=== PATIENT | female | born 1970 | race Caucasian/White ===

== ENCOUNTER 2016-07-13 08:39 | Emergency (ER) | payer OTHER ==
[2016-07-13] MEDS ORDERED: SODIUM CHLORIDE 0.9% 1000ML 1,000 ML IVS ONE (09:03)
[2016-07-13] MEDS ORDERED: ONDANSETRON INJ 4 MG/2 ML VIAL IV ONE (09:03)
--- NOTE | 2016-07-13 09:06 | ED.PDOC ---
History of Present Illness - General Chief Complaint: GI Problem Stated Complaint: vomiting blood Time Seen by Provider: 07/13/16 08:51 Information Source: patient, RN notes reviewed, Vital Signs reviewed Exam Limitations: no limitations - History of Present Illness Initial Comments: Patient reports this morning she had a lot of sinus drainage. Along with this she has had nausea and one episode of vomiting. She reports there was more blood than bile in the vomit and she got concerned. Since vomiting she is having some epigastric and LUQ pain. Abdominal Pain Onset Location: LUQ, epigastric Pain Radiation: no radiation Quality: mild, dull, sharpness Timing/Duration: 1 hour Improving Factors: nothing Worsening Factors: nothing Associated Symptoms: nausea/vomiting Review of Systems - Review of Systems Constitutional: States: no symptoms reported. Denies: chills, diaphoresis, fever, malaise, weakness EENTM: States: other - Sinus pain/congestion/drainage Respiratory: States: no symptoms reported. Denies: cough, orthopnea, short of breath, stridor Cardiology: States: no symptoms reported. Denies: chest pain, palpitations, syncope Gastrointestinal/Abdominal: States: see HPI, abdominal pain, nausea, vomiting. Denies: constipation, diarrhea Genitourinary: States: no symptoms reported Musculoskeletal: States: no symptoms reported Skin: States: no symptoms reported Neurological: States: no symptoms reported. Denies: headache Endocrine: States: no symptoms reported Hematologic/Lymphatic: States: no symptoms reported. Denies: easy bleeding, easy bruising Past Medical History (General) - Patient Medical History Hx Hypertension: Yes Hx Diabetes: Yes Surgical History: other - Vaccination History Hx Tetanus, Diphtheria Vaccination: Yes Hx Influenza Vaccination: No Hx Pneumococcal Vaccination: No - Social History Hx Tobacco Use: No Hx Alcohol Use: No Hx Substance Use: No Hx Substance Use Treatment: No Hx Depression: No - Activities of Daily Living Hospice Agency (if applicable):: None - Female History Patient is a Female of Child Bearing Age (10 -59 yrs old): No Patient : No Family Medical History - Family History Mother Family History: Unknown Physical Exam - Physical Exam General Appearance: Alert, Comfortable, No apparent distress, Well Developed, Well Groomed, Well Hydrated, Well Nourished Eyes, Ears, Nose, Throat Exam: PERRL/EOMI, pharynx normal Neck: non-tender, full range of motion, supple, normal inspection Respiratory: chest non-tender, lungs clear, normal breath sounds, no respiratory distress, no accessory muscle use Cardiovascular/Chest: regular rate, rhythm, no edema, no gallop, no JVD, no murmur Gastrointestinal/Abdominal: soft, tenderness - generalized but worst in epigastric area Extremity: normal range of motion, non-tender, normal inspection, no pedal edema Neurologic: no motor/sensory deficits, alert, normal mood/affect, oriented x 3 Skin Exam: normal color, warm/dry Lymphatic: no adenopathy Special Observations: Smiling Progress - Progress Progress: 07/13/16 10:24 Patient has been comfortable her whole visit. No further episodes of vomiting. Labs are normal. Will d/c home with treatment for sinus infection. ER warnings given for any further bloody vomiting or diarrhea. Patient agrees with plan. Departure - Departure Clinical Impression: Sinusitis, Vomiting Time of Disposition: 10:26 Disposition: Discharge to Home or Self Care Condition: Good Departure Forms: ED Discharge - Pt. Copy, Patient Portal Self Enrollment Instructions: DI for Sinusitis, Nausea and Vomiting-Adult Diet: resume usual diet Referrals: Jass Rowland III, MD [Primary Care Provider] - 1-2 Days Prescriptions: Ondansetron [Zofran Odt] 4 mg PO Q4HR PRN #20 tab PRN Reason: Nausea/Vomiting Cefuroxime Axetil [Ceftin] 500 mg PO BID #20 tab Home Medications: Ambulatory Orders Acetaminophen W/ Codeine [Acetaminophen/Codeine 300-30 mg] 1 tab PO Q6-8H PRN # 15 tab 05/30/14 Lexapro 05/30/14 Lisinopril 05/30/14 Synthroid 05/30/14 Cefuroxime Axetil [Ceftin] 500 mg PO BID #20 tab 07/13/16 Ondansetron [Zofran Odt] 4 mg PO Q4HR PRN #20 tab 07/13/16
[2016-07-13 09:08] VITALS: O2SAT 96
[2016-07-13] MEDS ORDERED: SODIUM CHLORIDE 0.9% 1000ML 1,000 ML ONE (09:16)
[2016-07-13] MEDS ORDERED: methylPREDNISolone SODIUM SUC 125 MG/2 ML VIAL IV ONE (10:23)
[2016-07-13 10:49] VITALS: BP 128/79; TEMP 97.7
== END 2016-07-13 10:42 | disposition home or self-care (01) ==
LOC: ER 08:39
DX: J32.9 Chronic sinusitis, unspecified (principal); I10 Essential (primary) hypertension; E11.9 Type 2 diabetes mellitus without complications
CPT/HCPCS: 36415; 80053; 82150; 83690; 85025; J2405; J2930; J7030

== ENCOUNTER 2018-07-22 11:41 | Inpatient (IN) | payer OTHER ==
--- NOTE | 2018-07-22 11:42 | HP ---
CHIEF COMPLAINT: Direct admit for worsening urinary tract infection. HISTORY OF PRESENT ILLNESS: Ms. Garcia is a patient of Dr. Rowland at [facility] who has been having some problems with a urinary tract infection. She states she was having some dysuria and some issues about a week ago, started drinking more water and cranberry juice to alleviate symptoms as this has worked in the past. She began to develop fever and chills over the last several days, the chills being worse than anything. She was seen in the clinic on Wednesday for the fever and was started on Macrobid and was found to be flu positive at that time. Since Wednesday, the fever and chills have still been going on, she does have spotty aches, but worsening new onset lower back pain around her lower rib area for the last day or so. She currently still endorses dysuria and a slight headache. She said she has not been urinating very much, but she thinks it is because she has not been drinking much water, just sleeping most of the day. REVIEW OF SYSTEMS: GENERAL: Fever and chills present, in mild acute distress just of lack of sleep and exhaustion. HEENT: Denies nasal congestion, headache present. CHEST: No shortness of breath, no cough, no pleuritic chest pain. CARDIOVASCULAR: No chest pains, no palpitations, no peripheral edema. ABDOMEN: Slight soreness throughout the abdomen with torso movements and getting up and down out of the bed, slightly worse in the lower suprapubic quadrant. MUSCULOSKELETAL: No extremity issues. She feels like her lower back is in pain. NEUROLOGIC: No confusion, headache present. PAST MEDICAL HISTORY: 1. Chronic hypothyroidism. 2. Generalized anxiety. 3. Essential hypertension. 4. Gastroesophageal reflux disease. 5. Insulin dependent diabetes mellitus, type 1. 6. History of Dustin's disease. PAST SURGICAL HISTORY: 1. section. 2. Hysterectomy of the uterus only. MEDICATIONS: 1. Furosemide 40 mg q. daily p.o. 2. Lisinopril 10 mg tablet p.o. daily. 3. Alprazolam 0.5 mg tablet half to one tablet by mouth daily p.r.n. anxiety. 4. Synthroid 0.1 mg tablet daily. 5. Potassium chloride 10 mEq tablets 2 tablets per day. 6. Macrobid 100 mg capsule every 12 hours for 7 days. 7. Insulin pump for type 1 diabetes. ALLERGIES: NO KNOWN DRUG ALLERGIES. SOCIAL HISTORY: Occupation: Teacher. Marital status: . Children: Two. Tobacco: She has never smoked. Alcohol: Daily glass of wine. Illicit drug use: None. PHYSICAL EXAMINATION: VITAL SIGNS: Temperature 99.5. Heart rate 112. Blood pressure 147/85. Respiratory rate 20. Oxygen saturation 100% on room air. GENERAL: In mild distress, seemingly exhausted and having diffuse body aches. CHEST: Lungs clear to auscultation, no wheezing, no rales. CARDIOVASCULAR: Normal sinus rhythm, tachycardia, no murmurs, no peripheral edema. ABDOMEN: Tender to palpation throughout abdomen, negative rebound, more localized soreness to the suprapubic region. Mild to moderate CVA tenderness, worse on the left than the right. NEUROLOGIC: Alert and oriented to person, place and time. Cranial nerves intact. EXTREMITIES: No swelling, pulses normal. LABORATORY: WBC 7.4, HGB 14.2, PLT 192, SODIUM 131, K 3.3, CHLORIDE 97, CO2 23, AST 320, ALT 226, ALK PHOS 93, PENDING AMYLASE/LIPASE IMAGING: Pending renal ultrasound read, but verbal prelim read showed no acute findings of liver/pancrease/gallbladder, slight possible small fluid in one renal pelvis. ASSESSMENT: 1. History of urinary tract infection, likely current complicated urinary tract infection, concerning for pyelonephritis. Failed outpatient treatment on Macrobid. 2. Tachycardia, likely secondary to #1. 3. Tachypnea, likely secondary to #1. 4. Sepsis without shock, secondary to #1. 5. Chronic insulin dependent diabetes mellitus, type 1, on insulin pump. 6. Chronic gastroesophageal reflux disease. 7. Chronic hypertension. 8. Chronic anxiety. 9. Chronic hypothyroidism. PLAN: Currently, Ms. Garcia has failed outpatient treatment for urinary tract infection on Macrobid b.i.d., her fevers and chills have worsened and it is obvious her infection is still going on. I do have results from clinic lab work which on urinalysis shows 2+ bacteria with trace leukocyte esterase, but negative nitrite. Also seen is 5 to 10 white cell count, which could represent likely urinary tract infection. White blood cell count prior to admission was 9.3, given this and her vitals here, we could go ahead and label her as septic and begin sepsis protocol with fluid resuscitation as per protocol. We will start cefepime IV for complicated urinary tract infection with systemic symptoms and Tylenol p.r.n. for pain control. We will obtain a new urinalysis and urine culture as I do not have results at this time for urine culture. Blood cultures will be obtained as well. She is still mobile, no need for DVT prophylaxis at this time. We will order a renal ultrasound to evaluate for any fluid collection or any type of abscess that may be present. Liver enzyme elevation, will look at hepatitis panel. Given AST>ALT, possible EtOH liver changes as she drinks alcohol daily. I discussed this with the patient and at bedside. #[id number] [facility]
[2018-07-22] MEDS ORDERED: SODIUM CHLORIDE 0.9% (FLUSH) 10 ML SYG IV PRN (13:26)
[2018-07-22] MEDS ORDERED: IV SET AND CAP CHANGE INJ INJ SCH (13:30)
[2018-07-22] MEDS ORDERED: ALPRAZolam 0.5 MG TAB PO PRN (13:33)
[2018-07-22] MEDS ORDERED: SODIUM CHLORIDE 0.9% 1000ML 1,000 ML IVS ONE ×2 (13:47→13:49)
[2018-07-22] MEDS: ACETAMINOPHEN 325 MG TAB PO PRN (14:02)
[2018-07-22] MEDS: LISINOPRIL 10 MG TAB PO SCH (14:34)
[2018-07-22] MEDS ORDERED: SODIUM CHL 0.9% 50ML MIN-BAG+ 50 ML IVPB ONE ×2 (14:43→19:15)
[2018-07-22] MEDS ORDERED: CEFEPIME 2 GM VIAL ONE ×2 (14:44→19:15)
[2018-07-22] MEDS: CEFEPIME 2 GM in SODIUM CHL 0.9% 50ML MIN-BAG+ 50 ML IVPB SCH (14:53)
--- NOTE | 2018-07-22 15:23 | US ---
EXAM DESCRIPTION: Abdomen,Complete: Ultrasound. CLINICAL HISTORY: Potential Pyelonephritis, Lever Enzyme Elevation COMPARISON: CT scan of abdomen and pelvis May 2014. TECHNIQUE: Transabdominal scannin-dimensional and Doppler modes.. Patient voided prior to procedure. FINDINGS: Gallbladder: Normal size and shape with no intraluminal stones or sludge. No wall thickening. 1.6 mm. No fluid surrounding the gallbladder. Nontender with transducer pressure. Common bile duct: 4.8 mm normal caliber. Liver: 13.2 cm long axis with normal echogenicity. Smooth capsule where seen with no ascites. Normal direction of flow in the portal and hepatic veins.. No intrahepatic duct dilation. Pancreas: Normal echogenicity in the included segments with pancreatic duct not seen.. Abdominal aorta: Normal caliber from the proximal segment to the distal bifurcation. IVC: visualized; normal caliber. Spleen normal echogenicity; long axis measurement is 9.2 cm. Right kidney: 9.7 cm long axis. Normal echogenicity and thickness of the cortex. No hydronephrosis. No perinephric fluid. No focal lesions. Normal vascularity. Left kidney: 9.9 cm long axis. Minimal cortical thinning with normal echogenicity. No hydronephrosis, but renal pelvis is slightly prominent. Normal vascularity. No perinephric fluid. No focal lesions. Proximal ureter not seen. Urinary bladder volume 9 mL. IMPRESSION: 1. Minimal prominence of the left renal pelvis which may be normal variant. Proximal left ureter not seen. Urinary bladder almost empty. Right kidney unremarkable. No focal lesions or perinephric fluid bilaterally. 2. Remainder of examination is unremarkable. Electronically signed by: Rodney Lopez MD 07/22/2018 3:20 PM [facility]
[2018-07-22] MEDS: SODIUM CHLORIDE 0.9% 1000ML 1,000 ML IVS PRN (17:05)
[2018-07-22] MEDS ORDERED: LEVOTHYROXINE SODIUM 0.1 MG TAB ONE (19:15)
[2018-07-22] MEDS: IBUPROFEN 400 MG TAB PO PRN (19:37)
[2018-07-23] MEDS: CEFEPIME 2 GM in SODIUM CHL 0.9% 50ML MIN-BAG+ 50 ML IVPB SCH ×2 (01:30→14:15)
[2018-07-23] MEDS: SODIUM CHLORIDE 0.9% 1000ML 1,000 ML IVS PRN (01:32)
[2018-07-23] MEDS: LEVOTHYROXINE SODIUM 0.1 MG TAB PO SCH (06:11)
[2018-07-23] MEDS: ACETAMINOPHEN 325 MG TAB PO PRN ×2 (06:11→14:10)
[2018-07-23] MEDS ORDERED: POTASSIUM CHLORIDE 20 MEQ TAB PO ONE (06:36)
[2018-07-23] MEDS: LISINOPRIL 10 MG TAB PO SCH (08:36)
[2018-07-23] MEDS: SODIUM CHLORIDE 0.9% (FLUSH) 10 ML SYG IV SCH ×2 (09:00→20:26)
--- NOTE | 2018-07-23 10:35 | PN ---
DATE: 07/23/18 SUBJECTIVE: Mc. Garcia endorses she is feeling a lot better today, has not had any fever or chills since yesterday. She says her left lower back pain is still present, but greatly decreased. She has been able to get up and go to the restroom, does not feel weak or dizzy when doing so. Regarding our discussion yesterday about her liver enzymes, again today she endorses no new or changing abdominal pain or tenderness when moving. REVIEW OF SYSTEMS: GENERAL: Denies any distress, no fever or chills. CHEST: No cough or shortness of breath. CARDIAC: Denies chest pain, denies palpitations. ABDOMEN: Slight but decreased soreness throughout the abdomen when rotating or moving, slightly more focal soreness in the left suprapubic region. MUSCULOSKELETAL: Denies any muscle weakness, denies a decrease in lower back pain. NEURO: No confusion, no headaches. OBJECTIVE: VITAL SIGNS: Temperature 98.7, pulse 77, blood pressure 106/71, respiratory rate 18. Oxygen saturation 100% on room air. GENERAL: In no acute distress, conversation normal. CHEST: Lungs are clear to auscultation, no wheezes. CARDIAC: Normal rate and rhythm, no murmurs, no peripheral edema. ABDOMEN: Mild diffuse tenderness throughout all quadrants, slight increase in tenderness in the left lower quadrant. When attempting Vargas's sign, she endorses pain in her epigastrium rather than the right upper quadrant. She endorsed this was her normal feeling of reflux with her. MUSCULOSKELETAL: Pulses normal, moving all extremities normal, slight improvement in lower left CVA tenderness. NEURO: Alert and oriented to person, place and time, no confusion, no focal deficits. LABORATORY: WBC 2.9, hemoglobin 12.4, platelet count 160,000, normal RDW. Sodium normalized at 137, potassium still low at 3.0, chloride 107, C02 of 22, BUN/creatinine 9/0.77. Total bilirubin still normal at 0.4, increase in AST/ALT to 851, 573, alkaline phosphatase increased from 93 to 181, troponin negative x2 from yesterday. Amylase and lipase within normal limits at 29 and 24 respectively. Urinalysis from admission shows trace blood and protein, but negative for nitrite and leukocyte esterase. Acute hepatitis panel is pending. MICROBIOLOGY: Urine culture pending along with susceptibilities, influenza A and B negative, blood cultures negative past 24 hours, preliminary as of now. IMAGING: Complete abdominal ultrasound from 07/22/18 shows: 1. Normal gallbladder with no thickening, no sign of infection, as well as a normal common bile duct. 2. Liver has normal echogenicity, smooth capsule with no ascites, no ductal issues. 3. Pancreas - He has normal echogenicity, no sign of infection. 4. Right and left kidney are normal echogenicity and normal thickness of the cortex. 5. Renal pelvis and left kidney are slightly prominent but no focal lesions are seen in either. ASSESSMENT: 1. History of urinary tract infection, likely current complicated urinary tract infection, concerning for pyelonephritis. Failed outpatient treatment on Macrobid. 2. Tachycardia, likely secondary to #1, resolved. 3. Tachypnea, likely secondary to #1, resolved. 4. Sepsis without shock, secondary to #1, resolved. 5. Chronic insulin dependent diabetes mellitus, type 1, on insulin pump. 6. Chronic gastroesophageal reflux disease. 7. Chronic hypertension. 8. Chronic anxiety. 9. Chronic hypothyroidism. PLAN: Currently, Ms. Garcia is improving from a sepsis/infection standpoint. Vital signs are normalizing, as well as her pain. She is doing well with p.o. oral intake, we will discontinue her fluids and monitor her blood pressure and vital signs. Regarding her elevation in liver enzymes, I have discussed with the pharmacy on-call about potential contributors of her medication list. Very unlikely to be Cefepime, as it is only has about a 3% chance of causing any liver enzyme elevation. Also, given a normal ultrasound, no real sign of acute infection, although, we are still waiting for an acute hepatitis panel. Stating the infection alone can increase the liver enzymes, if so, I would expect to see a decrease in these over the next day or so. Still waiting for urine cultures at this time, we do not have access to obtain any urine culture from an outside location. She did have a urine culture completed. We will continue on the current medications listed above and monitor improvement. Once we have cultures and susceptibilities from her urine, we can begin to narrow our spectrum into antibiotics to a more appropriate form. #[id number] [facility]
[2018-07-23] MEDS ORDERED: CEFEPIME 2 GM VIAL ONE ×2 (13:58→19:06)
[2018-07-23] MEDS ORDERED: SODIUM CHL 0.9% 50ML MIN-BAG+ 50 ML IVPB ONE ×2 (13:58→19:05)
[2018-07-23] MEDS: IBUPROFEN 400 MG TAB PO PRN (19:27)
[2018-07-24] MEDS: CEFEPIME 2 GM in SODIUM CHL 0.9% 50ML MIN-BAG+ 50 ML IVPB SCH (01:18)
[2018-07-24] MEDS: ACETAMINOPHEN 325 MG TAB PO PRN (01:54)
[2018-07-24] MEDS: LEVOTHYROXINE SODIUM 0.1 MG TAB PO SCH (06:05)
[2018-07-24] MEDS: SODIUM CHLORIDE 0.9% (FLUSH) 10 ML SYG IV SCH (08:59)
[2018-07-24] MEDS: LISINOPRIL 10 MG TAB PO SCH (08:59)
[2018-07-24 12:21] VITALS: BP 144/92; TEMP 97.8; O2SAT 99
--- NOTE | 2018-07-24 12:22 | PN ---
DATE: 07/24/18 SUBJECTIVE: The patient feeling well this morning, lower left back pain is very minimal, almost nonexistent. She states she feels well overall, and is patiently awaiting the urine cultures to decide what to do next. No changes per nursing overnight. REVIEW OF SYSTEMS:: GENERAL: No acute distress, no confusion. CHEST: No shortness of breath, no cough. CARDIO: No chest pain, denies palpitations. ABDOMEN: Soreness has apparently decreased, no more pains in the suprapubic region. NEUROLOGIC: No headache, no sensory changes. EXTREMITIES: No extremity pain, no extremity swelling. OBJECTIVE: VITAL SIGNS: Temperature 97.1, pulse 64, blood pressure 104/67, respiratory rate 16, O2 saturation 96% on room air. PHYSICAL EXAM: GENERAL: Sitting up in bed comfortably, no acute distress. CHEST: Lungs are clear to auscultation. No wheezes or crackles. CARDIO: Normal rate and rhythm, no murmurs, no pitting peripheral edema, normal pulses. ABDOMEN: Soft, non-tender, no more focal tenderness to the suprapubic region. MUSCULOSKELETAL: No extremity deformities, very minimal low back pain to palpation. NEUROLOGIC: No confusion, alert and oriented to person, place, and time, no focal deficits. LABORATORY: WBC 3.2, hemoglobin 12.4, hematocrit 38.0, platelet count 194. Sodium 136, potassium 3.4, chloride 107, CO2 is 22, BUN/creatinine 8/0.56. AST improved to 344, ALT improved to 424, alkaline phosphatase slightly elevated again at 247. Total bilirubin still normal at 0.4. Acute hepatitis panel is still pending. MICROBIOLOGY: Urine culture pending, blood cultures negative after 24 hours. ASSESSMENT: 1. History of urinary tract infection, likely current complicated urinary tract infection, concerning for pyelonephritis. Failed outpatient treatment on Macrobid, improved and resolving. 2. Tachycardia, likely secondary to #1, resolved. 3. Tachypnea, likely secondary to #1, resolved. 4. Sepsis without shock, secondary to #1, resolved. 5. Chronic insulin dependent diabetes mellitus, type 1, on insulin pump. 6. Chronic gastroesophageal reflux disease. 7. Chronic hypertension. 8. Chronic anxiety. 9. Chronic hypothyroidism. PLAN: The patient is doing very well. We are going to continue the IV antibiotics for now until we have blood cultures and susceptibilities. Her vital signs have normalized, and I urged her to get up and move around in the room or even walk down the halls when she can. Her liver enzymes are improving, as of now it seems that this was a response to her septic condition, and I expect them to normalize over the next couple of days. Her blood pressure is in the lower ranges of normal, I urged her to get to move around often throughout the day, this should normalize this into a more normal range. #[id number] [facility]
--- NOTE | 2018-07-24 14:18 | DS ---
ADMISSION DIAGNOSIS: 1. History of urinary tract infection, likely current complicated urinary tract infection, concerning for pyelonephritis. Failed outpatient treatment on Macrobid. 2. Tachycardia, likely secondary to #1. 3. Tachypnea, likely secondary to #1. 4. Sepsis without shock, secondary to #1. 5. Chronic insulin dependent diabetes mellitus, type 1, on insulin pump. 6. Chronic gastroesophageal reflux disease. 7. Chronic hypertension. 8. Chronic anxiety. 9. Chronic hypothyroidism. REASON FOR HOSPITALIZATION: Ms. Garcia is a patient of Dr. Rowland at [facility] who has been having some problems with a urinary tract infection. She states she was having some dysuria and some issues about a week ago, started drinking more water and cranberry juice to alleviate symptoms as this has worked in the past. She began to develop fever and chills over the last several days, the chills being worse than anything. She was seen in the clinic on Wednesday for the fever and was started on Macrobid and was found to be flu positive at that time. Since Wednesday, the fever and chills have still been going on, she does have spotty aches, but worsening new onset lower back pain around her lower rib area for the last day or so. She currently still endorses dysuria and a slight headache. She said she has not been urinating very much, but she thinks it is because she has not been drinking much water, just sleeping most of the day. HOSPITAL COURSE: Ms. Garcia was initially admitted with a suspected systemic response to a urinary tract infection she was being treated for outpatient. She met sepsis criteria upon admission, thus we initiated sepsis protocol with fluid resuscitation and antibiotics to cover for a systemic urinary tract infection. She had also tested positive for the flu the day she received treatment for her UTI which was 3 days prior to admission. Over the course of her stay she responded well to fluids, and resolved her sepsis picture by the end of hospital day 2. We have been treating her with Cefepime IV, while we were waiting for urine culture sepsis susceptibilities. VITAL SIGNS: Temperature 97.1, pulse 64, blood pressure 104/67, respiratory rate 16, O2 saturation 96% on room air. LABORATORY AND IMAGING: CBC remained normal throughout the entire stay. Chemistry revealed a slightly low potassium level, slightly increasing over the hospital stay. Of note, she had an elevated AST and ALT that seemed to rise due to her diagnosis of sepsis, but this has been normalizing over the last 2 days. Urinalysis on admission shows negative for nitrate or leukocyte esterase, in light of being treated for 2 days on Macrobid. Acute hepatitis panel is still pending. Urine culture: Less than 10,000 CFUs of normal urogenital karen. Abdominal ultrasound 07/22/18 shows a normal gallbladder and normal liver. Normal echogenicity and no other findings in the pancreas. A slightly prominent left renal pelvis which could be a normal variant or a result from UTI. DISCHARGE DIAGNOSIS: 1. History of urinary tract infection, likely current complicated urinary tract infection, concerning for pyelonephritis. Failed outpatient treatment on Macrobid, improved and resolving. 2. Influenza, resolved. 2. Tachycardia, likely secondary to #1 and #2, resolved. 3. Tachypnea, likely secondary to #1 and #2, resolved. 4. Sepsis without shock, secondary to #1 and #2, resolved. 5. Chronic insulin dependent diabetes mellitus, type 1, on insulin pump. 6. Chronic gastroesophageal reflux disease. 7. Chronic hypertension. 8. Chronic anxiety. 9. Chronic hypothyroidism. PLAN: After receiving final results for the urine culture, it seems that she was adequately treated for UTI with Macrobid prior to admission. I suspect her sepsis was then likely due to the concomitant Influenza infection. Whichever of these 2 were the main culprit, she received adequate treatment for both along the sepsis protocols. She will have received 2 days of Macrobid prior to admission, 3 days of Cefepime during the hospital stay, and will receive 3 more days of Macrobid once discharged. We discussed the need to remain hydrated and followup with primary care physician soon for a complete resolution. During her entire stay her anion gap remained normal and blood glucose never kamilah above 240, likely not a DKA or an HHS picture. #[id number] [facility]
== END 2018-07-24 11:10 | disposition home or self-care (01) | DRG 872 ==
LOC: MS 11:41
PROVIDERS: ADMIT Family Medicine; ATTEND Family Medicine
DX: A41.9 Sepsis, unspecified organism (principal); N12 Tubulo-interstitial nephritis, not specified as acute or chronic; E03.9 Hypothyroidism, unspecified; F41.1 Generalized anxiety disorder; I10 Essential (primary) hypertension; K21.9 Gastro-esophageal reflux disease without esophagitis; E10.9 Type 1 diabetes mellitus without complications; Z96.41 Presence of insulin pump (external) (internal); Z87.440 Personal history of urinary (tract) infections

== ENCOUNTER → 2020-04-01 | Outpatient (CLI) | payer BC | LOC: GMAL 10:56 | PROVIDERS: ATTEND Family Medicine | DX: E03.9 Hypothyroidism, unspecified (principal); E10.9 Type 1 diabetes mellitus without complications ==

== ENCOUNTER → 2020-06-05 | Outpatient (CLI) | payer BC | LOC: GMAL 10:33 | PROVIDERS: ATTEND Family Medicine | DX: E03.9 Hypothyroidism, unspecified (principal) ==

== ENCOUNTER → 2020-06-21 | Outpatient (CLI) | payer BC ==
--- NOTE | 2020-06-24 08:04 | MRI ---
EXAM DESCRIPTION: MRI left shoulder CLINICAL HISTORY: Left shoulder pain. Limited range of motion COMPARISON: None. TECHNIQUE: Multiplanar, multisequence MR images of the left shoulder FINDINGS: Mild acromioclavicular osteoarthritis with the distal clavicle indenting the supraspinatus. Minimal anterior lateral downsloping of the acromion with small acromial spur. Subacromial subdeltoid bursal edema without fluid. Supraspinatus tendinosis with minimal bursal surface fraying. No tear. Muscle volume mildly decreased with grade 1 fatty infiltration. Infraspinatus, teres minor and subscapularis tendons are normal. Mild muscle volume loss and grade 1 fatty infiltration Long head biceps tendon normal in the bicipital groove and intra-articular. Signal within the labral anchor/superior labrum, bright PD and T2 signal, extending from anterior superior posterior superior. The remainder the labrum is intact No full-thickness chondrosis or chronic osteochondral lesion. Moderate effusion with fluid primarily in the biceps tendon sheath and subcoracoid recess Intracapsular and pericapsular edema, subcoracoid triangle sign IMPRESSION: Partial detachment of the labral anchor/superior labrum Adhesive capsulitis Supraspinatus tendinosis with low-grade bursal surface fraying Electronically signed by: Andrew Tong MD 06/24/2020 8:03 AM [facility]
== END ==
LOC: MRI 14:02
PROVIDERS: ATTEND Family Medicine
DX: S43.432A Superior glenoid labrum lesion of left shoulder, initial encounter (principal); M75.01 Adhesive capsulitis of right shoulder; M77.9 Enthesopathy, unspecified